=== PATIENT | male | born 2000 | race Caucasian/White ===

== ENCOUNTER 2018-12-24 11:28 | Emergency (ER) | payer BC ==
[2018-12-24 11:51] VITALS: BP 149/85
[2018-12-24] MEDS ORDERED: Ibuprofen TAB* 400 MG PO ONE (12:40)
[2018-12-24] MEDS ORDERED: cefTRIAXone VIAL(*) 1,000 MG VIAL IM ONE (12:40)
[2018-12-24] MEDS ORDERED: Acetaminophen TAB* 325 MG PO ONE (12:41)
--- NOTE | 2018-12-24 13:02 | UC ---
Complaint Male HPI - HPI Summary HPI Summary: Patient complaining of bilateral flank pain on and off for the past few days. he states he has been drinking ETOH heavily and reports cocaine use as well. he has been increasing water over the last few days. worried he is in kidney failure. he is urinating without difficulty. - History of Current Complaint Chief Complaint: UCBackPain Stated Complaint: LOWER BACK PAIN Time Seen by Provider: 12/24/18 12:36 Hx Obtained From: Patient Onset/Duration: Sudden Onset, Lasting Days Timing: Intermittent Severity Initially: Moderate Severity Currently: Moderate Pain Intensity: 4 Location: Flank - bilateral Character: Colicy Aggravating Factor(s): Nothing - Allergies/Home Medications Allergies/Adverse Reactions: Allergies Allergy/AdvReac Type Severity Reaction Status Date / Time No Known Allergies Allergy Verified 12/24/18 11:48 Home Medications: Home Medications NK [No Home Medications Reported] 12/24/18 [History Confirmed 12/24/18] PMH/Surg Hx/FS Hx/Imm Hx Previously Healthy: Yes - Surgical History Surgical History: Yes Surgery Procedure, Year, and Place: hernia repair as child - Family History Known Family History: Positive: Hypertension - Social History Alcohol Use: Weekly Alcohol Amount: 3-4 times weekly Substance Use Type: None Smoking Status (MU): Light Every Day Tobacco Smoker Type: eCigarettes Amount Used/How Often: vaping Review of Systems All Other Systems Reviewed And Are Negative: Yes Constitutional: Positive: Negative Skin: Positive: Negative Eyes: Positive: Negative ENT: Positive: Negative Respiratory: Positive: Negative Cardiovascular: Positive: Negative Gastrointestinal: Positive: Negative Genitourinary: Positive: Negative Motor: Positive: Negative Neurovascular: Positive: Negative Musculoskeletal: Positive: Myalgia Neurological: Positive: Negative Psychological: Positive: Negative Is Patient Immunocompromised?: No Physical Exam Triage Information Reviewed: Yes Appearance: Well-Appearing, Well-Nourished, Pain Distress Vital Signs: Initial Vital Signs Temp 98.4 F 12/24/18 11:46 Pulse 62 12/24/18 11:46 Resp 17 12/24/18 11:46 BP 149/85 12/24/18 11:46 Pulse Ox 99 12/24/18 11:46 Vital Signs Reviewed: Yes Eye Exam: Normal ENT Exam: Normal Dental Exam: Normal Neck exam: Normal Respiratory Exam: Normal Cardiovascular Exam: Normal Abdominal Exam: Normal Abdomen Description: Positive: Nontender, No Organomegaly, Soft, CVA Tenderness (R) - neg, CVA Tenderness (L) - neg Bowel Sounds: Positive: Present Musculoskeletal Exam: Normal Neurological Exam: Normal Psychological Exam: Normal Skin Exam: Normal Complaint Male Course/Dx - Course Course Of Treatment: hx obtained, exam performed ,meds reviewed, educated on the effects of ETOH abuse and cocaine abuse: cardiac, kidneys and even . advised he have a complete workup when he goes home in the next week after school ends. - Differential Dx/Diagnosis Differential Diagnosis/HQI/PQRI: Pyelonephritis, Ureteral Calculi, Urinary Tract Infection Provider Diagnosis: Flank pain, ETOH abuse, Cocaine abuse Discharge - Sign-Out/Discharge Documenting (check all that apply): Patient Departure All imaging exams completed and their final reports reviewed: No Studies - Discharge Plan Condition: Stable Disposition: HOME Patient Education Materials: Flank Pain (ED) Referrals: No Primary Care Phys,NOPCP [Primary Care Provider] - Additional Instructions: 1. Stay hydrated, 2. Aim for 75 ml of clear fluids, non caffinated. 3. Refrain from alcohol for the next few weeks to rehydrate. 4. If your flank pain returns, please follow up with your primary. - Billing Disposition and Condition Condition: STABLE Disposition: Home
== END 2018-12-24 13:02 | disposition home or self-care (01) ==
LOC: UCCORT 11:28
DX: F10.10 Alcohol abuse, uncomplicated (principal); R10.9 Unspecified abdominal pain; F14.10 Cocaine abuse, uncomplicated; F17.210 Nicotine dependence, cigarettes, uncomplicated
CPT/HCPCS: 81003; 99201; G0463